=== PATIENT | male | born 1975 | race Two or more races ===

== ENCOUNTER 2016-08-27 19:25 | Inpatient (IN) | payer OTHER ==
[~2016-08-27] VITALS: Ht 175.3 cm; Wt 68.0 kg
[2016-08-27 19:39] VITALS: BP 136/82
--- NOTE | 2016-08-27 19:43 | Emergency Room Report ---
History of Present Illness General Chief Complaint: Abdominal Pain Source: Patient Present Illness [facility] This is a 40-year-old male with no similar past medical history. He presents with chief complaint of abdominal pain. Pain is diffuse and radiate to his chest area. Pain is 10 out of 10. Occur around 6 AM this morning. No nausea no vomiting but no diarrhea. No fever or chills. He has similar pain in the past but never this severe. No previous abdominal surgery. Nothing made it better. Nothing made it worse. Allergies: Coded Allergies: No Known Allergies (Unverified , 08/27/16) Patient History Past Medical History: see triage record, old chart reviewed Past Surgical History: none Pertinent Family History: none Social History: Reports: alcohol use, smoking Immunizations: other Reviewed Nursing Documentation: PMH: Agreed, PSxH: Agreed Nursing Documentation-PMH Past Medical History: No Stated History Review of Systems Eye: Denies: blurred vision, eye pain ENT: Denies: ear pain, nose congestion, throat swelling Respiratory: Denies: cough, shortness of breath Cardiovascular: Denies: chest pain, palpitations Gastrointestinal: Reports: abdominal pain, Denies: diarrhea, nausea, vomiting Musculoskeletal: Denies: back pain, joint pain Skin: Denies: rash Neurological: Denies: headache, numbness Endocrine: Denies: increased thirst, increased urine Hematologic/Lymphatic: Denies: easy bruising All Other Systems: negative except mentioned in HPI Physical Exam Vital Signs Date Time Temp Pulse Resp B/P Pulse Ox O2 Delivery O2 Flow Rate FiO2 08/27/16 19:33 97.9 120 16 136/82 99 Room Air vitals with tachycardia Sp02 EP Interpretation: reviewed, normal General Appearance: well appearing, no apparent distress, alert Head: normocephalic, atraumatic Eyes: bilateral eye EOMI, bilateral eye PERRL ENT: hearing grossly normal, normal pharynx Neck: full range of motion, supple, no meningismus Respiratory: chest non-tender, lungs clear, normal breath sounds Cardiovascular #1: regular rate, rhythm, no murmur Gastrointestinal: normal bowel sounds, no mass, no organomegaly, no bruit, non- distended, tenderness - Mild, diffuse Musculoskeletal: back normal, gait/station normal, normal range of motion Psychiatric: mood/affect normal Skin: warm/dry Medical Decision Making Diagnostic Impression: Primary Impression: Pancreatitis, acute Qualified Codes: K85.20 - Alcohol induced acute pancreatitis without necrosis or infection ER Course Patient presents with abdominal pain and has acute appendicitis. This is secondary to alcohol abuse. He required multiple doses of pain medication. Will admit for IV pain medication and keep n.p.o. Discussed the case with Dr. August who will admit. Lab Results Impression labs with elevated lipase Chest X-Ray Diagnostic Results Chest X-Ray Ordered: No CT/MRI/US Diagnostic Results CT/MRI/US Diagnostic Results : Imaging Test Ordered: CT abdomen and pelvis Impression read by radiologist. Moderate pancreatitis Last Vital Signs Date Time Temp Pulse Resp B/P Pulse Ox O2 Delivery O2 Flow Rate FiO2 08/27/16 19:39 97.9 109 16 136/82 99 Room Air Status: improved Disposition: ADMITTED INPATIENT Condition: Serious ANTONETTE GRESHAM M.D. Aug 27, 2016 19:43
[2016-08-27] MEDS ORDERED: Morphine Sulfate 4mg/ml Inj IVP ONE (19:45)
[2016-08-27 20:04] LABS: BASOPHILS % (AUTO) 0.8 % (0.0-2.0); LYMPHOCYTES % (AUTO) 12.7 % (20.0-45.0); MEAN CORPUSCULAR HEMOGLOBIN 33.8 PG (27.0-31.0); MEAN CORPUSCULAR HGB CONC 35.2 G/DL (32.0-36.0); MEAN CORPUSCULAR VOLUME 96 FL (80-99); MEAN PLATELET VOLUME 6.3 FL (6.5-10.1); MONOCYTES % (AUTO) 2.4 % (1.0-10.0); NEUTROPHILS % (AUTO) 84.1 % (45.0-75.0); PLATELET COUNT 289 K/UL (150-450); RED BLOOD COUNT 5.25 M/UL (4.70-6.10); RED CELL DISTRIBUTION WIDTH 16.9 % (11.6-14.8); WHITE BLOOD COUNT 13.5 K/UL (4.8-10.8)
[2016-08-27 20:10] LABS: APPEARANCE,URINE CLEAR; KETONES,URINE 3+ (NEGATIVE); LEUKOCYTE ESTERASE ,URINE NEGATIVE (NEGATIVE); NITRITE,URINE NEGATIVE (NEGATIVE); PH,URINE 6 (4.5-8.0); PROTEIN,URINE 2+ (NEGATIVE); UROBILINOGEN,URINE 1 MG/DL (0.0-1.0)
[2016-08-27 20:20] LABS: MUCUS,URINE MODERATE /LPF (NONE/OCC); RBC,URINE 0 /HPF (0 - 0); WBC,URINE 0-2 /HPF (0 - 0)
[2016-08-27 20:22] LABS: ALANINE AMINOTRANSFERASE 28 U/L (3-41); ALBUMIN/GLOBULIN RATIO 1.8 (1.0-2.7); ANION GAP 23 (5-15); ASPARTATE AMINO TRANSFERASE 55 U/L (5-40); CALCIUM 10.2 mg/dL (8.6-10.2); CARBON DIOXIDE 26 mEQ/L (20-30); CHLORIDE 92 mEQ/L (98-107); GLOMERULAR FILTRATION RATE > 60 mL/min (>60); HEMOLYSIS 12; POTASSIUM 3.2 mEQ/L (3.4-4.9); SODIUM 141 mEQ/L (135-145); TOTAL PROTEIN 7.6 g/dL (6.6-8.7)
[2016-08-27 20:29] VITALS: BP 174/88
[2016-08-27 20:45] LABS: BILIRUBIN,DIRECT 0.3 mg/dL (0.1-0.3)
[2016-08-27 20:53] LABS: LIPASE 838 U/L (< 60)
[2016-08-27] MEDS ORDERED: HYDROmorphone 1mg/ml Carpuject IVP ONE ×2 (21:00→22:45)
[2016-08-27 21:12] VITALS: BP 125/89
[2016-08-27] MEDS ORDERED: IBUPROFEN800 MG ORAL (21:33)
[2016-08-27] MEDS ORDERED: CYCLOBENZAPRINE10 MG ORAL (21:38)
[2016-08-27 22:00] VITALS: BP 159/100
[2016-08-27 23:00] VITALS: BP 148/84
[2016-08-27] MEDS ORDERED: LORazepam Inj 2mg/ml 1ml IV PRN (23:45)
[2016-08-28 00:28] VITALS: BP 158/92
[2016-08-28] MEDS: Morphine Sulfate 2mg/ml Inj IVP PRN ×3 (01:11→07:24)
[2016-08-28] MEDS: NS w/KCl 20mEq 1,000 ML IV SCH ×4 (01:12→23:14)
--- NOTE | 2016-08-28 03:00 | History and Physical Report ---
DATE OF ADMISSION: 08/27/2016 REASON FOR ADMISSION: Acute pancreatitis. HISTORY OF PRESENT ILLNESS: This is a 40-year-old male with no significant prior medical history, who presented to the hospital complaining of one day of progressive abdominal pain. He has associated shortness of breath. He has had nausea, but no vomiting. He admits to excessive alcohol use with breakfast, lunch, and dinner for the past several days, because he had a friend, parting with him. In general, he does not drink regularly or occasionally. SOCIAL HISTORY: Notable for smoking and alcohol use at this time. FAMILY HISTORY: Noncontributory. PAST MEDICAL HISTORY: Otherwise unremarkable. ALLERGIES: Not known. REVIEW OF SYSTEMS: A 10-point review of systems performed. All systems negative other than noted above. PHYSICAL EXAMINATION: VITAL SIGNS: Blood pressure is 136/82, pulse 120, respiratory rate 16, afebrile, and oxygen saturation on room air 99%. HEENT: Conjunctivae are pink. Sclerae are anicteric. Oropharynx is clear. Mucous membranes are moist. NECK: Supple. Jugular venous pressure is normal. LUNGS: Clear. CARDIAC: Regular rhythm and rate. Normal S1 and S2. No murmur, rub, or gallop. ABDOMEN: Soft. Moderately tender in the midepigastric region. No guarding or rebound. EXTREMITIES: No edema. NEUROLOGIC: Nonfocal. DIAGNOSTIC DATA: CAT scan is suggestive of acute pancreatitis. LABORATORY DATA: White count is 15.5 and hemoglobin 17.7. Sodium is 141, potassium 3.2, chloride 93, bicarbonate 26, BUN 13, creatinine 1, and glucose 128. AST is 55 and ALT 28. Lipase is 838. IMPRESSION: 1. Acute pancreatitis. 2. Hypokalemia. 3. Hypochloremia. 4. Hypovolemia and dehydration. 5. Mild hyperglycemia. 6. Alcohol abuse. PLAN: 1. NPO. 2. Intravenous fluid hydration. 3. Replace potassium. 4. Check magnesium. 5. Serial liver function and pancreatic enzyme assessment. 6. Check lipid panel. 7. Pain control with alcohol withdrawal precautions. Matt August M.D. : Emilie JOB#: [id number] CC:
[2016-08-28 04:00] VITALS: BP 155/88
[2016-08-28 08:17] VITALS: BP 159/102
--- NOTE | 2016-08-28 08:58 | Diagnostic Imaging Report ---
Indication: Abdominal pain Technique: Continuous helical transaxial imaging of the abdomen and pelvis was obtained from the lung bases to the pubic symphysis during intravenous contrast administration. Coronal 2-D reformats were also obtained. Study obtained in a Siemens sensation [address] Total Dose length Product (DLP): [address] Dose Index Volume (CTDIvol): 14 mGy Comparison: None Findings: There is moderate inflammation and fluid surrounding the pancreas consistent with acute pancreatitis. The pancreas itself enhances normally. Generalized small bowel dilatation and gastric distention noted. No biliary ductal dilatation is identified. The liver, spleen, kidneys appear unremarkable. Bladder is unremarkable. Lung bases appear clear. Impression: Acute pancreatitis Dr. Gomez has communicated the preliminary results to the Emergency Department. There are no significant discrepancies. The CT scanner at [facility] is accredited by the [employer] and the scans are performed using dose optimization techniques as appropriate to a performed exam including Automatic Exposure control.
[2016-08-28] MEDS: Morphine Sulfate 4mg/ml Inj IVP PRN ×4 (10:09→22:44)
[2016-08-28 10:59] LABS: MEAN CORPUSCULAR HEMOGLOBIN 32.9 PG (27.0-31.0); MEAN CORPUSCULAR HGB CONC 34.6 G/DL (32.0-36.0); MEAN CORPUSCULAR VOLUME 95 FL (80-99); MEAN PLATELET VOLUME 7.2 FL (6.5-10.1); PLATELET COUNT 184 K/UL (150-450); RED BLOOD COUNT 4.85 M/UL (4.70-6.10); RED CELL DISTRIBUTION WIDTH 16.8 % (11.6-14.8)
[2016-08-28 11:14] LABS: ALANINE AMINOTRANSFERASE 19 U/L (3-41); AMYLASE 331 U/L (10-110); ANION GAP 16 (5-15); ASPARTATE AMINO TRANSFERASE 43 U/L (5-40); BILIRUBIN,DIRECT 0.4 mg/dL (0.1-0.3); CALCIUM 8.8 mg/dL (8.6-10.2); CARBON DIOXIDE 26 mEQ/L (20-30); CHLORIDE 93 mEQ/L (98-107); CHOLESTEROL 130 mg/dL (< 200); CHOLESTEROL/HDL RATIO 2.2 (3.3-4.4); CREATININE 0.8 mg/dL (0.7-1.2); GLOMERULAR FILTRATION RATE > 60 mL/min (>60); HEMOLYSIS 10; LDL CHOLESTEROL (CALC.) 45 mg/dL (60-99); POTASSIUM 4.2 mEQ/L (3.4-4.9); SODIUM 135 mEQ/L (135-145); TOTAL PROTEIN 6.1 g/dL (6.6-8.7)
[2016-08-28 11:27] LABS: LIPASE 573 U/L (< 60)
[2016-08-28 11:33] LABS: ANISOCYTOSIS 1+; BAND NEUTROPHILS % (MANUAL) 0 % (0-8); BASOPHILS % (MANUAL) 0 % (0-2); EOSINOPHILS % (MANUAL) 0 % (0-3); LYMPHOCYTES % (MANUAL) 10 % (20-45); NEUTROPHILS % (MANUAL) 89 % (45-75); PLATELET ESTIMATE ADEQUATE; PLATELET MORPHOLOGY NORMAL; TOTAL CELLS COUNTED 100
[2016-08-28 12:06] VITALS: BP 154/100
[2016-08-28 16:18] VITALS: BP 158/108
[2016-08-28 20:00] VITALS: BP 162/99
--- NOTE | 2016-08-28 20:30 | Consultation ---
DATE OF CONSULTATION: 08/28/2016 CHIEF COMPLAINT: Abdominal pain. HISTORY OF PRESENT ILLNESS: This is a very pleasant 40-year-old male without any significant medical history, apparently was drinking about one pint of vodka a day for at least a week presented to the hospital complaining of abdominal pain, 12/27. Laboratory results were consistent with acute pancreatitis with lipase 800. This morning patient is still having a lot of abdominal pain, he is able to pass some gas, he states morphine 1 mg every 3 hours is not . PAST MEDICAL HISTORY: None. ALLERGIES: None. MEDICATIONS: Please see medication reconciliation list. SOCIAL HISTORY: The patient drinks one pint of vodka daily. Denies any IV drug abuse. FAMILY HISTORY: Noncontributory. REVIEW OF SYSTEMS: A 10-point review of systems was performed and pertinent positives in history of present illness. PHYSICAL EXAMINATION: VITAL SIGNS: Blood pressure is 155/88, pulse 76, respirations 18, and temperature 98.3. HEENT: Normocephalic and atraumatic. Sclerae are anicteric. NECK: Supple. No lymphadenopathy. CARDIOVASCULAR: Regular rate and rhythm. Plus S1 and S2. LUNGS: Clear to auscultation bilaterally. ABDOMEN: Mildly distended. Hypoactive bowel sounds. Diffusely tender to palpation most prominent in the epigastric area. No rebound. No guarding. No peritoneal sign. EXTREMITIES: No cyanosis. No clubbing. No edema. LABORATORY AND DIAGNOSTIC DATA: Sodium 141, potassium 3.2. Liver function tests, bilirubin is 1.3, otherwise the rest is okay. Lipase is 838. ASSESSMENT: The patient is a 40-year-old male with acute alcoholic pancreatitis. PLAN: keep him NPO, intravenous fluids. Increase morphine to 4 mg every four hour IV p.r.n. Repeat labs for tomorrow and also check for lipid panel. Benedicto Donahue M.D. DR: Lucille JOB#: [id number] CC:
[2016-08-29] VITALS: BP 157/94
[2016-08-29] MEDS: Morphine Sulfate 4mg/ml Inj IVP PRN ×6 (02:45→23:09)
--- NOTE | 2016-08-29 03:45 | Progress Note ---
DATE: 08/28/2016 INTERNAL MEDICINE PROGRESS NOTE SUBJECTIVE: The patient continues to have abdominal pain. His blood pressure is elevated. His pancreatic enzymes remain elevated with lipase above 800. OBJECTIVE: VITAL SIGNS: Blood pressure 155/88, pulse 76, and respirations 18. NECK: Supple. LUNGS: Clear. CARDIAC: Regular rhythm and rate. Normal S1 and S2 with no murmur. ABDOMEN: Distended and tender in the mid epigastric region. EXTREMITIES: No edema. IMPRESSION: 1. Alcoholism with alcohol bingeing and acute pancreatitis. 2. Hypertension, possibly aggravated by pain. PLAN: 1. NPO. 2. Hydration. 3. Pain control. 4. Follow up lipid panel. 5. Add topical clonidine for blood pressure control. Matt August M.D. DR: TITO JOB#: [id number] CC:
[2016-08-29 04:00] VITALS: BP 156/101
[2016-08-29] MEDS: NS w/KCl 20mEq 1,000 ML IV SCH ×3 (06:19→23:09)
[2016-08-29 06:58] LABS: MEAN CORPUSCULAR HEMOGLOBIN 33.3 PG (27.0-31.0); MEAN CORPUSCULAR HGB CONC 34.6 G/DL (32.0-36.0); MEAN CORPUSCULAR VOLUME 96 FL (80-99); MEAN PLATELET VOLUME 7.9 FL (6.5-10.1); PLATELET COUNT 129 K/UL (150-450); RED CELL DISTRIBUTION WIDTH 17.1 % (11.6-14.8); WHITE BLOOD COUNT 10.3 K/UL (4.8-10.8)
[2016-08-29 07:19] LABS: ALANINE AMINOTRANSFERASE 13 U/L (3-41); ALBUMIN/GLOBULIN RATIO 1.3 (1.0-2.7); AMYLASE 173 U/L (10-110); ANION GAP 14 (5-15); ASPARTATE AMINO TRANSFERASE 28 U/L (5-40); CALCIUM 8.7 mg/dL (8.6-10.2); CARBON DIOXIDE 27 mEQ/L (20-30); CHLORIDE 94 mEQ/L (98-107); CHOLESTEROL 120 mg/dL (< 200); CHOLESTEROL/HDL RATIO 2.7 (3.3-4.4); CREATININE 0.8 mg/dL (0.7-1.2); GLOMERULAR FILTRATION RATE > 60 mL/min (>60); HEMOLYSIS 3; LDL CHOLESTEROL (CALC.) 42 mg/dL (60-99); LIPASE 181 U/L (< 60); POTASSIUM 4.3 mEQ/L (3.4-4.9); SODIUM 135 mEQ/L (135-145)
[2016-08-29 08:08] VITALS: BP 138/100
[2016-08-29 09:51] LABS: BAND NEUTROPHILS % (MANUAL) 2 % (0-8); BASOPHILS % (MANUAL) 0 % (0-2); EOSINOPHILS % (MANUAL) 2 % (0-3); LYMPHOCYTES % (MANUAL) 10 % (20-45); NEUTROPHILS % (MANUAL) 84 % (45-75); PLATELET ESTIMATE DECREASED; TOTAL CELLS COUNTED 100
[2016-08-29 09:53] LABS: PLATELET MORPHOLOGY NORMAL
[2016-08-29 09:54] LABS: ANISOCYTOSIS 1+
[2016-08-29 11:56] VITALS: BP 137/89
[2016-08-29 15:47] VITALS: BP 143/90
[2016-08-29 20:00] VITALS: BP 150/85
[2016-08-30] VITALS: BP 152/89
[2016-08-30 04:00] VITALS: BP 147/97
[2016-08-30] MEDS: Morphine Sulfate 4mg/ml Inj IVP PRN ×3 (04:49→16:46)
--- NOTE | 2016-08-30 05:45 | Progress Note ---
DATE: 08/29/2016 INTERNAL MEDICINE PROGRESS NOTE SUBJECTIVE: Abdominal pain has decreased now to the level of 5 to 6. No vomiting. Some nausea when he takes in too much ice chips and following morphine. OBJECTIVE: VITAL SIGNS: Stable with some sinus tachycardia noted. Blood pressure improved 143/90, pulse 109, respiratory rate 20, and T-max 99 degrees. HEENT: Oropharynx clear. NECK: Supple. LUNGS: Clear. CARDIAC: Regular. Normal S1 and S2. ABDOMEN: Still slightly tender in the upper quadrants bilaterally. EXTREMITIES: Without edema. LABORATORY DATA: White count down to 10.3 and hemoglobin 14. Chemistry panel within normal limits. Triglycerides 164. Total cholesterol 120. Amylase and lipase down to 173 and 181 respectively. Liver function studies are now normal. IMPRESSION: Alcohol-induced acute pancreatitis, slowly improving. PLAN: 1. Continue NPO. 2. IV fluids. 3. Reassess for diet in the next 24 hours. 4. Pain control. Matt August M.D. DR: IVY JOB#: [id number] CC:
[2016-08-30 06:47] LABS: ALANINE AMINOTRANSFERASE 9 U/L (3-41); ALBUMIN/GLOBULIN RATIO 1.1 (1.0-2.7); AMYLASE 71 U/L (10-110); ANION GAP 14 (5-15); ASPARTATE AMINO TRANSFERASE 22 U/L (5-40); CALCIUM 8.6 mg/dL (8.6-10.2); CARBON DIOXIDE 26 mEQ/L (20-30); CHLORIDE 93 mEQ/L (98-107); CREATININE 0.8 mg/dL (0.7-1.2); GLOMERULAR FILTRATION RATE > 60 mL/min (>60); HEMOLYSIS 10; LIPASE 61 U/L (< 60); POTASSIUM 4.5 mEQ/L (3.4-4.9); SODIUM 133 mEQ/L (135-145); TOTAL PROTEIN 5.9 g/dL (6.6-8.7)
[2016-08-30 06:58] LABS: BASOPHILS % (AUTO) 0.4 % (0.0-2.0); EOSINOPHILS % (AUTO) 1.1 % (0.0-3.0); LYMPHOCYTES % (AUTO) 13.8 % (20.0-45.0); MEAN CORPUSCULAR HEMOGLOBIN 32.8 PG (27.0-31.0); MEAN CORPUSCULAR HGB CONC 33.9 G/DL (32.0-36.0); MEAN CORPUSCULAR VOLUME 97 FL (80-99); MEAN PLATELET VOLUME 8.4 FL (6.5-10.1); MONOCYTES % (AUTO) 4.8 % (1.0-10.0); NEUTROPHILS % (AUTO) 79.9 % (45.0-75.0); PLATELET COUNT 109 K/UL (150-450); RED BLOOD COUNT 3.66 M/UL (4.70-6.10); RED CELL DISTRIBUTION WIDTH 17.2 % (11.6-14.8); WHITE BLOOD COUNT 7.7 K/UL (4.8-10.8)
[2016-08-30 08:00] VITALS: BP 134/81
[2016-08-30] MEDS: NS w/KCl 20mEq 1,000 ML IV SCH ×2 (08:00→16:46)
[2016-08-30 12:00] VITALS: BP 136/84
--- NOTE | 2016-08-30 14:59 | GI Progress Note ---
Assessment/Plan Problems: (1) ETOH abuse ICD Codes: F10.10 - Alcohol abuse, uncomplicated SNOMED: 72346491 (2) Pancreatitis, acute ICD Codes: K85.90 - Acute pancreatitis without necrosis or infection, unspecified SNOMED: 856000828 Status: stable, progressing Status Narrative Discussed with Dr. Donahue. Assessment/Plan alcoholic pancreatitis elevated lipase normalizing ok for DC if patient tolerates dinner adv to regular diet, dc IVF's if patient tolerates PO > 500 ETOH cessation given to patient pain mgmt fu labs Subjective Subjective abdominal pain greatly improved Objective Last 24 Hour Vital Signs Date Time Temp Pulse Resp B/P Pulse Ox O2 Delivery O2 Flow Rate FiO2 08/30/16 12:00 97.7 96 20 136/84 99 Room Air 08/30/16 11:24 97.7 08/30/16 08:00 98.1 85 20 134/81 98 Room Air 08/30/16 04:00 97.8 103 20 147/97 97 Room Air 08/30/16 00:00 98.2 92 18 152/89 99 Room Air 08/29/16 20:00 98.4 101 18 150/85 98 Room Air 08/29/16 15:47 99.0 109 20 143/90 99 Room Air Intake and Output 08/29/16 08/30/16 19:00 07:00 Intake Total 1250 ml 2975 ml Output Total 350 ml 4 ml Balance 900 ml 2971 ml Intake Oral 1600 ml IV Total 1250 ml 1375 ml Output Urine Total 350 ml 4 ml # Voids 2 # Bowel Movements 2 Laboratory Tests Test 08/30/16 05:10 White Blood Count 7.7 K/UL (4.8-10.8) Red Blood Count 3.66 M/UL (4.70-6.10) L Hemoglobin 12.0 G/DL (14.2-18.0) L Hematocrit 35.3 % (42.0-52.0) L Mean Corpuscular Volume 97 FL (80-99) Mean Corpuscular Hemoglobin 32.8 PG (27.0-31.0) H Mean Corpuscular Hemoglobin Concent 33.9 G/DL (32.0-36.0) Red Cell Distribution Width 17.2 % (11.6-14.8) H Platelet Count 109 K/UL (150-450) L Mean Platelet Volume 8.4 FL (6.5-10.1) Neutrophils (%) (Auto) 79.9 % (45.0-75.0) H Lymphocytes (%) (Auto) 13.8 % (20.0-45.0) L Monocytes (%) (Auto) 4.8 % (1.0-10.0) Eosinophils (%) (Auto) 1.1 % (0.0-3.0) Basophils (%) (Auto) 0.4 % (0.0-2.0) Sodium Level 133 mEQ/L (135-145) L Potassium Level 4.5 mEQ/L (3.4-4.9) Chloride Level 93 mEQ/L (98-107) L Carbon Dioxide Level 26 mEQ/L (20-30) Anion Gap 14 (5-15) Blood Urea Nitrogen 5 mg/dL (7-23) L Creatinine 0.8 mg/dL (0.7-1.2) Estimat Glomerular Filtration Rate > 60 mL/min (>60) Glucose Level 79 mg/dL (74-106) Calcium Level 8.6 mg/dL (8.6-10.2) Total Bilirubin 0.9 mg/dL (0.0-1.2) Aspartate Amino Transf (AST/SGOT) 22 U/L (5-40) Alanine Aminotransferase (ALT/SGPT) 9 U/L (3-41) Alkaline Phosphatase 61 U/L (40-129) Total Protein 5.9 g/dL (6.6-8.7) L Albumin 3.2 g/dL (3.5-5.2) L Globulin 2.7 g/dL Albumin/Globulin Ratio 1.1 (1.0-2.7) Amylase Level 71 U/L (10-110) Lipase 61 U/L (< 60) H Height (Feet): 5 Height (Inches): 9.00 Weight (Pounds): 150 General Appearance: no apparent distress, alert Cardiovascular: normal rate Respiratory/Chest: normal breath sounds, no respiratory distress Abdominal Exam: normal bowel sounds, non tender, soft Extremities: normal range of motion Cherelle Amaya N.P. Aug 30, 2016 14:59
[2016-08-30 16:00] VITALS: BP 139/93
--- NOTE | 2016-08-30 18:48 | General Progress Note ---
Assessment/Plan Assessment/Plan Assessment - acute EtOH pancreatitis Recommendations - po diet trial - follow labs and exam - avoid EtOH Subjective Allergies: Coded Allergies: No Known Allergies (Unverified , 08/27/16) Subjective feels better still with some abd pain, but better labs noted Objective Last 24 Hour Vital Signs Date Time Temp Pulse Resp B/P Pulse Ox O2 Delivery O2 Flow Rate FiO2 08/30/16 17:16 98.1 08/30/16 16:00 98.1 83 20 139/93 99 Room Air 08/30/16 12:00 97.7 96 20 136/84 99 Room Air 08/30/16 08:00 98.1 85 20 134/81 98 Room Air 08/30/16 04:00 97.8 103 20 147/97 97 Room Air 08/30/16 00:00 98.2 92 18 152/89 99 Room Air 08/29/16 20:00 98.4 101 18 150/85 98 Room Air Intake and Output 08/29/16 08/30/16 19:00 07:00 Intake Total 1250 ml 2975 ml Output Total 350 ml 4 ml Balance 900 ml 2971 ml Intake Oral 1600 ml IV Total 1250 ml 1375 ml Output Urine Total 350 ml 4 ml # Voids 2 # Bowel Movements 2 Laboratory Tests 08/30/16 05:10: White Blood Count 7.7, Red Blood Count 3.66L, Hemoglobin 12.0L, Hematocrit 35.3L , Mean Corpuscular Volume 97, Mean Corpuscular Hemoglobin 32.8H, Mean Corpuscular Hemoglobin Concent 33.9, Red Cell Distribution Width 17.2H, Platelet Count 109L, Mean Platelet Volume 8.4, Neutrophils (%) (Auto) 79.9H, Lymphocytes (%) (Auto) 13.8L, Monocytes (%) (Auto) 4.8, Eosinophils (%) (Auto) 1.1, Basophils (%) (Auto) 0.4, Sodium Level 133L, Potassium Level 4.5, Chloride Level 93L, Carbon Dioxide Level 26, Anion Gap 14, Blood Urea Nitrogen 5L, Creatinine 0.8, Estimat Glomerular Filtration Rate > 60, Glucose Level 79, Calcium Level 8.6, Total Bilirubin 0.9, Aspartate Amino Transf (AST/SGOT) 22, Alanine Aminotransferase (ALT/SGPT) 9, Alkaline Phosphatase 61, Total Protein 5.9L, Albumin 3.2L, Globulin 2.7, Albumin/Globulin Ratio 1.1, Amylase Level 71, Lipase 61H Height (Feet): 5 Height (Inches): 9.00 Weight (Pounds): 150 Objective WDWN NCAT supple CTA RRR Soft ND minimally TTP epigastric no edema non focal NARINDER OLIVAS Aug 30, 2016 18:48
[2016-08-30 20:00] VITALS: BP 138/82
[2016-08-30] MEDS ORDERED: Morphine Sulfate 2mg/ml Inj IVP PRN (20:15)
[2016-08-30] MEDS ORDERED: NS w/KCl 20mEq 1,000 ML IV SCH (21:30)
[2016-08-31] VITALS: BP 131/78
--- NOTE | 2016-08-31 00:30 | Progress Note ---
DATE: 08/30/2016 INTERNAL MEDICINE PROGRESS NOTE.: SUBJECTIVE: The patient started on liquids today. His pain level has decreased. He has not had vomiting. He still has some pain. He has been requiring morphine every 4 to 6 hours. OBJECTIVE: VITAL SIGNS: Blood pressure 138/92, heart rate 89, respirations 17, and afebrile. NECK: Supple. LUNGS: Clear. CARDIAC: Regular. ABDOMEN: Soft and mildly tender in the midepigastric region. EXTREMITIES: No edema. IMPRESSION: 1. Acute pancreatitis, improved. 2. Hypertension, controlled with topical clonidine. PLAN: Advance diet. Taper off morphine. Transition from topical to oral antihypertensives if needed. Matt August M.D. DR: Jose JOB#: [id number] CC:
[2016-08-31 07:09] LABS: ANION GAP 11 (5-15); CALCIUM 8.7 mg/dL (8.6-10.2); CARBON DIOXIDE 28 mEQ/L (20-30); CHLORIDE 98 mEQ/L (98-107); CREATININE 0.8 mg/dL (0.7-1.2); GLOMERULAR FILTRATION RATE > 60 mL/min (>60); HEMOLYSIS 4; LIPASE 58 U/L (< 60); POTASSIUM 4.4 mEQ/L (3.4-4.9); SODIUM 137 mEQ/L (135-145)
[2016-08-31 07:12] LABS: BASOPHILS % (AUTO) 0.5 % (0.0-2.0); EOSINOPHILS % (AUTO) 1.2 % (0.0-3.0); LYMPHOCYTES % (AUTO) 15.9 % (20.0-45.0); MEAN CORPUSCULAR HEMOGLOBIN 32.6 PG (27.0-31.0); MEAN CORPUSCULAR HGB CONC 34.1 G/DL (32.0-36.0); MEAN CORPUSCULAR VOLUME 95 FL (80-99); MEAN PLATELET VOLUME 8.2 FL (6.5-10.1); MONOCYTES % (AUTO) 5.4 % (1.0-10.0); PLATELET COUNT 140 K/UL (150-450); RED BLOOD COUNT 3.63 M/UL (4.70-6.10); RED CELL DISTRIBUTION WIDTH 17.1 % (11.6-14.8); WHITE BLOOD COUNT 6.5 K/UL (4.8-10.8)
[2016-08-31 08:00] VITALS: BP 139/81
--- NOTE | 2016-08-31 17:45 | General Progress Note ---
Assessment/Plan Assessment/Plan Assessment - acute EtOH pancreatitis - resolved Recommendations - po diet - d/c planning - avoid EtOH - outpt f/u - pt given my card Subjective Allergies: Coded Allergies: No Known Allergies (Unverified , 08/27/16) Subjective feels better tolerating solids labs noted Objective Last 24 Hour Vital Signs Date Time Temp Pulse Resp B/P Pulse Ox O2 Delivery O2 Flow Rate FiO2 08/31/16 08:00 99.1 82 18 139/81 99 Room Air 08/31/16 00:00 97.8 98 20 131/78 99 Room Air 08/30/16 20:00 98.1 89 17 138/82 98 Room Air Intake and Output 08/30/16 08/31/16 19:00 07:00 Intake Total 1695 ml 712.5 ml Balance 1695 ml 712.5 ml Intake Oral 320 ml IV Total 1375 ml 712.5 ml # Voids 4 3 Laboratory Tests 08/31/16 05:50: White Blood Count 6.5, Red Blood Count 3.63L, Hemoglobin 11.8L, Hematocrit 34.7L , Mean Corpuscular Volume 95, Mean Corpuscular Hemoglobin 32.6H, Mean Corpuscular Hemoglobin Concent 34.1, Red Cell Distribution Width 17.1H, Platelet Count 140L, Mean Platelet Volume 8.2, Neutrophils (%) (Auto) 77.0H, Lymphocytes (%) (Auto) 15.9L, Monocytes (%) (Auto) 5.4, Eosinophils (%) (Auto) 1.2, Basophils (%) (Auto) 0.5, Sodium Level 137, Potassium Level 4.4, Chloride Level 98, Carbon Dioxide Level 28, Anion Gap 11, Blood Urea Nitrogen 7, Creatinine 0.8, Estimat Glomerular Filtration Rate > 60, Glucose Level 131H, Calcium Level 8.7, Lipase 58 Height (Feet): 5 Height (Inches): 9.00 Weight (Pounds): 150 Objective WDWN NCAT supple CTA RRR Soft ND minimally TTP epigastric no edema non focal NARINDER OLIVAS Aug 31, 2016 17:45
--- NOTE | 2016-09-01 09:40 | Discharge Summary ---
Discharge Summary Hospital Course Date of Admission Aug 27, 2016 at 22:10 Date of Discharge Aug 31, 2016 at 13:07 Admitting Diagnosis pancreatitis HPI Frantz Gallardo is a 40 year old male who was admitted on Aug 27, 2016 at 22 :10 for Pancreatitis Hospital Course [id number] Discharge Discharge Disposition Patient was discharged to Home (01) Discharge Diagnoses: Dagmar De Santiago NP Sep 01, 2016 09:40
--- NOTE | 2016-09-01 22:15 | Discharge Summary 2 SIG ---
DATE OF ADMISSION: 08/27/2016 DATE OF DISCHARGE: 08/31/2016 SOD STRIPPER: Paty Hurst M.D. BRIEF HOSPITAL COURSE: The patient is a 40-year-old male with no significant prior medical history, presented to the hospital complaining of one day of progressive abdominal pain. He had nausea, but no vomiting and admitted to excessive alcohol use for the past several days. On evaluation at ED, lipase was elevated to 838 and liver function tests, AST 55 and ALT 28. CAT scan of abdomen was suggestive of acute pancreatitis. He was admitted and was placed on NPO with IV fluid hydration and was given pain control. Amylase and lipase down trended. Lipid panel unremarkable. Diet was advanced and was tolerating diet. The patient was eventually discharged home to follow up with PMD in a week. FINAL DIAGNOSES: 1. Acute alcoholic pancreatitis. 2. Hypertension. Matt August M.D. I have been assigned to dictate discharge summary on this account and I was not involved in the patient's management. Dagmar De Santiago N.P. DR: Dario JOB#: [id number] CC: [id number]
== END 2016-08-31 13:07 | disposition home or self-care (01) | DRG 439 ==
LOC: EMR 20:46 → 4E 22:10 → EDBEDREQ 08-28 00:02
DX: K85.20 Alcohol induced acute pancreatitis without necrosis or infection (principal); F10.188 Alcohol abuse with other alcohol-induced disorder; E87.8 Other disorders of electrolyte and fluid balance, not elsewhere classified; I10 Essential (primary) hypertension; E87.6 Hypokalemia; E86.1 Hypovolemia; E86.0 Dehydration; R73.9 Hyperglycemia, unspecified
CPT/HCPCS: 36415; 74177; 80048; 80053; 80061; 80076; 80300; 81003; 82150; 82248; 83690; 85007; 85025; J2405

== ENCOUNTER 2017-06-22 15:58 | Emergency (ER) | payer SELFPAY ==
[~2017-06-22] VITALS: Ht 175.3 cm; Wt 68.0 kg
[~2017-06-22 15:58] MED LIST: CYCLOBENZAPRINE10 MG ORAL; IBUPROFEN800 MG ORAL
[2017-06-22] MEDS ORDERED: oxyCODONE HCL/Acetaminophen 5/325mg ORAL ONE (16:30)
[2017-06-22] MEDS ORDERED: Norco 5mg/325mg tab ORAL ONE (16:30)
[2017-06-22 17:15] VITALS: BP 116/79
[2017-06-22 17:20] LABS: APPEARANCE,URINE CLEAR; BILIRUBIN, URINE NEGATIVE (NEGATIVE); COLOR,URINE PALE YELLOW; GLUCOSE, URINE (UA) NEGATIVE (NEGATIVE); HEMOGLOBIN 13.7 G/DL (14.2-18.0); KETONES,URINE NEGATIVE (NEGATIVE); LEUKOCYTE ESTERASE ,URINE NEGATIVE (NEGATIVE); LYMPHOCYTES % (AUTO) 16.5 % (20.0-45.0); MEAN CORPUSCULAR VOLUME 105 FL (80-99); MONOCYTES % (AUTO) 5.2 % (1.0-10.0); NEUTROPHILS % (AUTO) 77.2 % (45.0-75.0); NITRITE,URINE NEGATIVE (NEGATIVE); PH,URINE 7 (4.5-8.0); PLATELET COUNT 278 K/UL (150-450); PROTEIN,URINE NEGATIVE (NEGATIVE); RED BLOOD COUNT 3.92 M/UL (4.70-6.10); RED CELL DISTRIBUTION WIDTH 16.5 % (11.6-14.8); UROBILINOGEN,URINE NORMAL MG/DL (0.0-1.0); WHITE BLOOD COUNT 8.8 K/UL (4.8-10.8)
[2017-06-22 17:31] LABS: ANION GAP 7 mmol/L (5-15); BLOOD UREA NITROGEN 14 mg/dL (7-18); CALCIUM 8.9 MG/DL (8.5-10.1); CARBON DIOXIDE 29 MMOL/L (21-32); CHLORIDE 106 MMOL/L (98-107); CREATININE 0.9 MG/DL (0.55-1.30); POTASSIUM 3.5 MMOL/L (3.5-5.1); SODIUM 142 MMOL/L (136-145)
[2017-06-22 17:39] LABS: CREATINE KINASE 65 U/L (26-308)
[2017-06-22 17:47] LABS: ALANINE AMINOTRANSFERASE 30 U/L (12-78); ALBUMIN/GLOBULIN RATIO 1.2 (1.0-2.7); ALKALINE PHOSPHATASE 77 U/L (46-116); ASPARTATE AMINO TRANSFERASE 22 U/L (15-37); BILIRUBIN,TOTAL 0.2 MG/DL (0.2-1.0)
[2017-06-22] MEDS ORDERED: TYLENOL EXTRA500 MG ORAL (18:51)
[2017-06-22] MEDS ORDERED: ROBAXIN500 MG PO (18:51)
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
[2017-06-22 19:38] VITALS: BP 125/81
--- NOTE | 2017-06-23 10:10 | Diagnostic Imaging Report ---
Indication: 41-year-old male with low back pain, left-sided lower extremity paresthesia x1 day Technique: Sagittal T1 fast spin echo, sagittal T2 FRFSE, sagittal STIR, axial T2 FRFSE stacked and disc cut images, axial T1, pre and postcontrast axial and sagittal T1 fat saturated images of the lumbar spine Comparison: none Findings: The vertebral body heights are preserved. Vertebral body marrow signal is normal. Bony alignment is normal. The disc spaces are preserved. The conus medullaris terminates at the L1 level. At L3-4, mild ligamentum flavum hypertrophy results in mild neural foraminal stenosis bilaterally. There is equivocal minimal left lateral disc protrusion exacerbating this slightly No significant disc bulge or protrusion or spinal stenosis. There is very mild facet arthrosis at this level. At L4-5, there is right foraminal and for lateral disc protrusion which results in [id number] compromise of the right neural foramen. No significant disc bulge or protrusion or spinal stenosis. The left neural foramen is preserved. At L5-S1 there is minimal broad-based central posterior disc protrusion which does not significantly compromise the spinal canal. There is also more focal foraminal and far lateral disc protrusion There is mild to moderate compromise of the right neural foramen by the disc, exacerbated by slight and facet arthrosis. No left neural foraminal stenosis. No unusual contrast enhancement is demonstrated. The included extraspinal soft tissues are unremarkable. Impression: Mild degenerative changes, as detailed below by level basis above No evidence of unusual contrast enhancement This agrees with the preliminary interpretation provided overnight by [facility] service.
== END 2017-06-22 19:38 | disposition home or self-care (01) ==
LOC: EMR 16:52
DX: M51.16 Intervertebral disc disorders with radiculopathy, lumbar region (principal); R20.2 Paresthesia of skin; M51.17 Intervertebral disc disorders with radiculopathy, lumbosacral region
CPT/HCPCS: 36415; 72158; 80053; 81003; 82550; 83605; 84484; 85025; 87040; 93005; 96374; 99284; A9585